=== PATIENT | male | born 1940 | race Caucasian/White ===

== ENCOUNTER 2023-06-28 10:53 | Outpatient (REF) | payer MEDICARE, SELFPAY | END 2023-06-28 10:54 | disposition home or self-care (01) | LOC: HO.BBR 10:53 | PROVIDERS: PCP Family Medicine; Visit Provider Internal Medicine | DX: Z13.89 Encounter for screening for other disorder (principal) ==

== ENCOUNTER 2023-07-05 14:31 | Outpatient (AMB) | payer MEDICARE, SELFPAY ==
--- NOTE | 2023-07-05 15:02 | HO.NEPHOV_ITS ---
HPI HPI Comments History of Present Illness Details Mr. Cordova was seen in the office in follow-up for his hypertension. He regularly follows up with his primary care provider Dr. Zazueta. His blood pressure is well controlled. He is compliant with his medications. He does not have any chest pain, shortness of breath, nausea, vomiting, diarrhea, urinary symptoms or pedal edema. He has quit drinking alcohol. His primary care had found him to have high ferritin levels. He had undergone studies to rule out hemochromatosis. He avoids nonsteroidal anti-inflammatory medications. There were no specific complaints at the time of this office visit. [facility] Medical History (Updated 07/06/23 @ 06:15 by Henri Shah MD) Hypertension Chronic kidney disease Cataract Surgical History (Updated 07/05/23 @ 15:07 by Lula Valerio MA) History of cataract surgery History of knee replacement Family History (Updated 07/05/23 @ 15:08 by Lula Valerio MA) Daughter Diabetes Social History (Updated 07/05/23 @ 15:07 by Lula Valerio MA) Alcohol intake: never Patient Tobacco Use Status: Former Tobacco user Vital Signs 07/05/23 15:08 Height 5 ft 2 in Weight 158 lb 4 oz BMI 28.9 BP 132/64 Blood Pressure Location Lt brachial Position Sitting Pulse 64 Pulse Source Pulse Oximeter Assessment & Plan Assessment & Plan (1) Hypertension: Code(s): I10 - Essential (primary) hypertension Qualifiers: Hypertension type: primary hypertension Qualified Code(s): I10 - Essential (primary) hypertension Plan Mr Cordova has hypertension for a long time. His blood pressure is currently well controlled and is at goal. He is not known to have any significant proteinuria or retinopathy. His volume status quite optimal. He should be on a low-sodium diet. He should avoid nonsteroidal anti-inflammatory medications. He is is on lipid-lowering agents. I did not make any medication changes today. All his questions were answered. Follow-up lab work ordered. Follow-up given. Time spent for retrieving data, patient encounter and documentation 24 minutes. Orders: Orders Electrolytes 07/05/23 I10 - Essential (primary) hypertension Creatinine 07/05/23 I10 - Essential (primary) hypertension Calcium 07/05/23 I10 - Essential (primary) hypertension Blood Urea Nitrogen 07/05/23 I10 - Essential (primary) hypertension Coding Level of Care Code Est Pt Level 3 (89132) Diagnoses Primary hypertension I10 Hypertension type: primary hypertension
[2023-07-05 15:08] VITALS: BP 132/64; PULSE 64; BMI 28.9
== END 2023-07-05 15:55 | disposition home or self-care (01) ==
PROVIDERS: PCP Family Medicine; Visit Provider Internal Medicine Nephrology
DX: I10 Essential (primary) hypertension (principal)
CPT/HCPCS: 99213

== ENCOUNTER → 2023-07-05 14:31 | Outpatient (BNVA) | payer MEDICARE, SELFPAY | PROVIDERS: PCP Family Medicine; Visit Provider Internal Medicine Nephrology | DX: I10 Essential (primary) hypertension (principal) | CPT/HCPCS: 99212 ==

== ENCOUNTER 2023-09-28 10:52 | Outpatient (REF) | payer MEDICARE, SELFPAY | END 2023-09-28 10:53 | disposition home or self-care (01) | LOC: HO.BBR 10:52 | PROVIDERS: PCP Family Medicine; Visit Provider Internal Medicine | DX: Z13.89 Encounter for screening for other disorder (principal) ==

== ENCOUNTER 2024-01-06 13:23 | Outpatient (AMB) | payer MEDICARE, SELFPAY ==
[2024-01-06 13:24] VITALS: BP 118/52; PULSE 68; O2SAT 96; BMI 29.8
--- NOTE | 2024-01-06 13:24 | HO.NEPHOV_ITS ---
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 Cordova was seen in the office in follow-up for his hypertension. He regularly follows up with his primary care provider Dr. Zazueta. His blood pressure is well controlled. He is compliant with his medications. He does not have any chest pain, shortness of breath, nausea, vomiting, diarrhea, urinary symptoms or pedal edema. He has quit drinking alcohol. He had undergone studies to rule out hemochromatosis. He avoids nonsteroidal anti-inflammatory medications. There were no specific complaints at the time of this office visit. [facility] Medical History (Updated 07/06/23 @ 06:15 by Henri Shah MD) Hypertension Chronic kidney disease Cataract Surgical History History of cataract surgery History of knee replacement Family History Daughter Diabetes Social History Alcohol intake: never Patient Tobacco Use Status: Former Tobacco user Physical Exam Vital Signs: Last Vital Signs Pulse 68 01/06/24 13:24 BP 148/52 H 01/06/24 13:24 Pulse Ox 96 01/06/24 13:24 Oxygen Delivery Method Room Air 01/06/24 13:24 BMI result Body Mass Index 29.8 Const General: comfortable and no acute distress Orientation/consciousness: patient oriented x3 HEENT Head: Yes normocephalic Mouth: Normal oral and palatal mucosa present Eyes EOM: EOMs intact bilaterally Neck Neck: Yes supple Resp Auscultation: clear to auscultation bilaterally Cardio Jugular venous distension: no JVD Rate: regular rate GI Palpation (GI): Soft to palpation Auscultation: normal bowel sounds General: Yes no CVA tenderness Back/Spine/Pelvis Back: no CVA tenderness Skin General skin exam: no rashes or lesions noted Neuro General: patient oriented x3 and moves all extremities Extrem General: Yes no pedal edema Results Reviewed Nephrology Results: No Data to Display Assessment & Plan Assessment & Plan (1) Hypertension: Code(s): I10 - Essential (primary) hypertension Category: Medical Qualifiers: Hypertension type: primary hypertension Qualified Code(s): I10 - Essential (primary) hypertension Plan Mr Cordova has hypertension for a long time. His blood pressure is currently well controlled and is at goal. He is not known to have any significant proteinuria or retinopathy. His volume status quite optimal. He should be on a low-sodium diet. He should avoid nonsteroidal anti-inflammatory medications. He is is on lipid-lowering agents. I did not make any medication changes today. All his questions were answered. Follow-up lab work ordered. Follow-up given. Coding Level of Care Code Est Pt Level 4 (67164) Diagnoses Primary hypertension I10 Hypertension type: primary hypertension
== END 2024-01-06 13:46 | disposition home or self-care (01) ==
PROVIDERS: PCP Family Medicine; Visit Provider Internal Medicine Nephrology
DX: I10 Essential (primary) hypertension (principal)
CPT/HCPCS: 99214

== ENCOUNTER → 2024-01-06 13:23 | Outpatient (BNVA) | payer MEDICARE, SELFPAY | PROVIDERS: PCP Family Medicine; Visit Provider Internal Medicine Nephrology | DX: I10 Essential (primary) hypertension (principal); Z79.899 Other long term (current) drug therapy | CPT/HCPCS: 99212 ==

== ENCOUNTER 2024-07-06 13:14 | Outpatient (AMB) | payer MEDICARE, SELFPAY ==
--- NOTE | 2024-07-06 13:31 | HO.NEPHOV ---
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 Cordova was seen in the office in follow-up for his hypertension. He regularly follows up with his primary care provider Dr. Zazueta. His blood pressure is well controlled. He is compliant with his medications. He does not have any chest pain, shortness of breath, nausea, vomiting, diarrhea, urinary symptoms or pedal edema. He has quit drinking alcohol. He had undergone studies to rule out hemochromatosis. He avoids nonsteroidal anti-inflammatory medications. There were no specific complaints at the time of this office visit. [facility] Medical History (Updated 07/06/23 @ 06:15 by Henri Shah MD) Hypertension Chronic kidney disease Cataract Surgical History History of cataract surgery History of knee replacement Family History Daughter Diabetes Social History Alcohol intake: never Patient Tobacco Use Status: Former Tobacco user Review of Systems Const All systems reviewed & are unremarkable except as noted in HPI and below Physical Exam Vital Signs: Last Vital Signs Pulse 68 07/06/24 13:33 BP 110/58 L 07/06/24 13:33 Pulse Ox 96 07/06/24 13:33 Oxygen Delivery Method Room Air 07/06/24 13:33 BMI result Body Mass Index 29.4 Const General: comfortable and no acute distress Orientation/consciousness: patient oriented x3 HEENT Head: Yes normocephalic Mouth: Normal oral and palatal mucosa present Eyes EOM: EOMs intact bilaterally Neck Neck: Yes supple Resp Auscultation: clear to auscultation bilaterally Cardio Jugular venous distension: no JVD Rate: regular rate GI Palpation (GI): Soft to palpation Auscultation: normal bowel sounds General: Yes no CVA tenderness Back/Spine/Pelvis Back: no CVA tenderness Skin General skin exam: no rashes or lesions noted Neuro General: patient oriented x3 and moves all extremities Extrem General: Yes no pedal edema Results Reviewed Nephrology Results: No Data to Display Assessment & Plan Assessment & Plan (1) Hypertension: Code(s): I10 - Essential (primary) hypertension Category: Medical Qualifiers: Hypertension type: primary hypertension Qualified Code(s): I10 - Essential (primary) hypertension Plan Mr Cordova has hypertension for a long time. His blood pressure is currently well controlled and is at goal. He is not known to have any significant proteinuria or retinopathy. His volume status quite optimal. He should be on a low-sodium diet. He should avoid nonsteroidal anti-inflammatory medications. He is is on lipid-lowering agents. I did not make any medication changes today. All his questions were answered. Follow-up lab work ordered. Follow-up given Orders: Orders Blood Urea Nitrogen 8 Months I10 - Essential (primary) hypertension Creatinine 8 Months I10 - Essential (primary) hypertension Electrolytes 8 Months I10 - Essential (primary) hypertension Coding Level of Care Code Est Pt Level 4 (63763) Diagnoses Primary hypertension I10 Hypertension type: primary hypertension
[2024-07-06 13:33] VITALS: BP 110/58; PULSE 68; O2SAT 96; BMI 29.4
== END 2024-07-06 13:47 | disposition home or self-care (01) ==
PROVIDERS: PCP Family Medicine; Visit Provider Internal Medicine Nephrology
DX: I10 Essential (primary) hypertension (principal)
CPT/HCPCS: 99214

== ENCOUNTER → 2024-07-06 13:14 | Outpatient (BNVA) | payer MEDICARE, SELFPAY | PROVIDERS: PCP Family Medicine; Visit Provider Internal Medicine Nephrology | DX: I10 Essential (primary) hypertension (principal) | CPT/HCPCS: 99212 ==

== ENCOUNTER 2025-03-06 09:44 | Outpatient (AMB) | payer MEDICARE, SELFPAY ==
--- NOTE | 2025-03-06 09:54 | HO.NEPHOV ---
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 Cordova was seen in the office in follow-up for his hypertension. His blood pressure is well controlled. He is compliant with his medications. He does not have any chest pain, shortness of breath, nausea, vomiting, diarrhea, urinary symptoms or pedal edema. He has quit drinking alcohol. He had undergone studies to rule out hemochromatosis. He avoids nonsteroidal anti-inflammatory medications. He came off ACEI. There were no specific complaints at the time of this office visit. [facility] Medical History (Updated 07/06/23 @ 06:15 by Henri Shah MD) Hypertension Chronic kidney disease Cataract Surgical History History of cataract surgery History of knee replacement Family History Daughter Diabetes Social History Alcohol intake: never Patient Tobacco Use Status: Former Tobacco user Review of Systems Const All systems reviewed & are unremarkable except as noted in HPI and below Physical Exam Vital Signs: Last Vital Signs Pulse 74 03/06/25 09:55 BP 120/52 L 03/06/25 09:55 Pulse Ox 97 03/06/25 09:55 Oxygen Delivery Method Room Air 03/06/25 09:55 BMI result Body Mass Index 29.4 Const General: comfortable and no acute distress Orientation/consciousness: patient oriented x3 HEENT Head: Yes normocephalic Mouth: Normal oral and palatal mucosa present Eyes EOM: EOMs intact bilaterally Neck Neck: Yes supple Resp Auscultation: clear to auscultation bilaterally Cardio Jugular venous distension: no JVD Rate: regular rate GI Palpation (GI): Soft to palpation Auscultation: normal bowel sounds General: Yes no CVA tenderness Back/Spine/Pelvis Back: no CVA tenderness Skin General skin exam: no rashes or lesions noted Neuro General: patient oriented x3 and moves all extremities Extrem General: Yes no pedal edema Assessment & Plan Assessment & Plan (1) Hypertension: Code(s): I10 - Essential (primary) hypertension Category: Medical Qualifiers: Hypertension type: primary hypertension Qualified Code(s): I10 - Essential (primary) hypertension Plan Mr Cordova has hypertension for a long time. His blood pressure is currently well controlled and is at goal. He is not known to have any significant proteinuria or retinopathy. His volume status quite optimal. He should be on a low-sodium diet. He should avoid nonsteroidal anti-inflammatory medications. He is is on lipid-lowering agents. I did not make any medication changes today. All his questions were answered. Follow-up lab work ordered. Follow-up given Orders: Orders Creatinine 6 Months I10 - Essential (primary) hypertension Blood Urea Nitrogen 6 Months I10 - Essential (primary) hypertension Electrolytes 6 Months I10 - Essential (primary) hypertension Protein Creatinine Ratio, Ur 6 Months I10 - Essential (primary) hypertension Coding Level of Care Code Est Pt Level 4 (21629) Diagnoses Primary hypertension I10 Hypertension type: primary hypertension
[2025-03-06 09:55] VITALS: BP 120/52; PULSE 74; O2SAT 97; BMI 29.4
--- OUTSIDE RECORDS SUMMARY | 2025-03-06 10:16 | XMS_ITS | Clinical Summary ---
Author Organization [facility] Address [address] [place] [address] Care Team Providers Care Pmo Lead Name Role Phone Blaine Zazueta MD Primary Care Provider [phone] Allergies No known active allergies Medications Medication Sig Dispensed Refills Start Date End Date Status dorzolamide-timolol (COSOPT) 22.3-6.8 MG/ML ophthalmic solution 1 drop 2 (two) times a day. 0 Active fluticasone (FLONASE) 50 MCG/ACT nasal spray spray/apply 1 spray in each nostril daily. 0 Active fluticasone-salmeterol 250-50 MCG/ACT AEPB Inhale into the lungs. 0 Active latanoprost (XALATAN) 0.005 % ophthalmic solution 1 drop every night at bedtime. 0 Active lisinopril (PRINIVIL,ZESTRIL) tablet 20 mg Take 1 tablet (20 mg total) by mouth daily. 0 Active metoprolol succinate (TOPROL-XL) 24 hr tablet 50 mg Take by mouth daily. 0 Active oxyCODONE (ROXICODONE) 5 MG immediate release tablet Take 1 tablet (5 mg total) by mouth every 4 (four) hours as needed for pain. 0 Active verapamil (CALAN-SR) 240 MG CR tablet Take 1 tablet (240 mg total) by mouth every night at bedtime. 0 Active Multiple Vitamins-Minerals (PRESERVISION AREDS PO) Take by mouth. 0 Active Active Problems No known active problems Social History Tobacco Use Types Packs/Day Years Used Date Smoking Tobacco: Former Cigarettes Smokeless Tobacco: Never Tobacco Cessation:Counseling Given: Not Answered Alcohol Use Standard Drinks/Week Comments Not Currently 0 (1 standard drink = 0.6 oz pur e alcohol) Sex and Gender Information Value Date Recorded Sex Assigned at Male 05/26/2023 8:35 AM EDT Gender Identity Not on file Sexual Orientation Not on file Job Start Date Occupation Industry Not on file Not on file Not on file Last Filed Vital Signs Vital Sign Reading Time Taken Comments Blood Pressure 155/46 06/06/2024 1:56 PM EDT Pulse 70 06/06/2024 1:56 PM EDT Temperature 36.4 C (97.6 F) 06/06/2024 1:56 PM EDT Respiratory Rate - - Oxygen Saturation 100% 06/06/2024 1:56 PM EDT Inhaled Oxygen Concentration - - Weight 73.4 kg (161 lb 12.8 oz) 06/06/2024 1:56 PM EDT Height - - Body Mass Index - - Plan of Treatment Health Maintenance Due Date Last Done Comments Depression Screening 1952 Preventative Health Evaluation 1958 DTap / Tdap / Td (1 - Tdap) 1959 Shingrix-Zoster Vaccine (1 of 2) 1990 Fall Risk Assessment 2005 Pneumococcal Vaccine (2 of 2 - PCV) 01/02/2015 01/02/2014 RSV Adult > 60+ Yrs or (1 - 1-dose 75+ series) 2015 COVID-19 Vaccine ( season) 2024 09/07/2021, 01/10/2021, 12/20/2020 Influenza Vaccine (#1) 2025 2, 06/25/2021, 04/25/2017, Additional history exists Hepatitis B Vaccines Aged Out No long er eligible based on patient's age to complete this topic RSV Ped < 20 months Aged Out No longe r eligible based on patient's age to complete this topic Care Teams Pmo Lead Relationship Specialty Start Date End Date Blaine Zazueta MD [address] [place] [address] PCP - General Family Medicine 05/26/23
--- OUTSIDE RECORDS SUMMARY | 2025-03-06 10:16 | XMS_ITS | Clinical Summary ---
Author Organization [facility] Address [address] [place] [address] Phone Care Team Providers Care Patrol Inspector Name Role Phone Blaine Zazueta Primary Care Provider [phone] Allergies Active Allergy Reactions Criticality Noted Date Comments Brimonidine 11/04/2011 Medications acetaminophen (TYLENOL) 500 mg tablet 500 mg as needed. 8 Active bromfenac (XIBROM) 0.09 % ophthalmic solution apply to the eye. Active dorzolamide-opal oloL (COSOPT) 22.3-6.8 mg/mL ophthalmic solution Sig: Use twice daily in each eye Active fluticasone propionate (FLONASE) 50 mcg/actuation nasal spray SHAKE LIQUID AND USE 1 TO 2 SPRAYS IN EACH NOSTRIL EVERY DAY NEEDED 3 Active latanoprost (XALATAN) 0.005 % ophthalmic solution 1 Drop at bedtime. Active lisinopriL (PRINIVIL,ZESTR IL) 20 mg tablet 20 mg daily. 2 Active metoprolol succinate (TOPROL-XL) 50 mg 24 hr tablet daily. 9 Active oxyCODONE (ROXICODONE) 5 mg immediate release tablet 5 mg. TAKE 1 1/2 TABLET DAILY 4 Active verapamil ER (VERELAN) 240 mg 24 hr capsule 240 mg 2 times daily. 9 Active atorvastatin (LIPITOR) 10 mg tablet Take 1 tablet (10 mg total) by mouth 1 (one) time each day. 4 Active vit A/vit C/vit E/zinc/copper (ICAPS AREDS ORAL) Take 2 capsules by mouth 1 (one) time each day. Active fluticasone propionate (FLOVENT DISKUS) 50 mcg/actuation diskus inhaler Inhale 1 puff by mouth 2 (two) times a day. Rinse mouth with water after use to reduce aftertaste and incidence of candidiasis. Do not swallow. Active Active Problems Problem Noted Date Diagnosed Date Hyperlipidemia 07/10/2019 Hypertension 07/10/2019 Known medical problems 07/10/2019 Overview (10/31/2024): Opioid dependence in controlled environment For chronic back pain Alcoholic liver disease ([facility] V24) 04/24/2018 Dupuytren's contracture 03/21/2017 Pulmonary emphysema ([facility] V24, [facility] V28) 0 11/30/2016 Pulmonary nodules 11/30/2016 Benign essential hypertension 07/08/2014 Chronic lower back pain 07/08/2014 Disc degeneration, lumbar 07/08/2014 Osteoarthritis of knee 05/16/2013 Aortic valve sclerosis 01/09/2013 Overview (10/31/2024): Comments: R/O stenosis Immunizations Name Administration Dates Next Due [employer] SARS-CoV-2 COVID-19, mRNA, LNP-S, preservative free 09/07/2021,01/10/2021,12/20/2020 Zoster Live 03/16/2012 Surgical History Surgery Date Site/Laterality Comments EYE SURGERY [id number] Right PROCEDURE: HISTORICAL EYE SURGERY; COMMENT: pars plana lensectomy, and endolaser vitrectomy COLONOSCOPY 2005 PROCEDURE: HISTORICAL COLONOSCOPY HAND SURGERY PROCEDURE: HISTORICAL HAND SURGERY; COMMENT: open palmar fasciotomy for Dupuytren's Contracture Medical History Medical History Date Comments Alcoholic liver disease ([facility] V24) 04/24/2018 DX:Alcoholic liver disease (HCC) Aortic valve sclerosis 01/09/2013 DX:Aortic valve sclerosis; COMMENT: Comments: R/O stenosis Benign essential hypertension 07/08/2014 DX :Benign essential hypertension Chronic lower back pain 07/08/2014 DX:Chron ic lower back pain Disc degeneration, lumbar 07/08/2014 DX:Dis c degeneration, lumbar Dupuytren's contracture 03/21/2017 DX:Robert tren's contracture Hyperlipidemia 07/10/2019 DX:Hyperlipidemi a Hypertension 07/10/2019 DX:Hypertension Opioid dependence in control led environment ([facility]) 07/10/2019 DX:Opioid dependence in cont rolled environment ([facility]); COMMENT: For chronic back pain Osteoarthritis of knee 05/16/2013 DX:Osteoa rthritis of knee Pulmonary emphysema ([facility] V24, [facility] [place] 11/30/2016 DX:Pulmonary emphysema ([facility]) Pulmonary nodules 11/30/2016 DX:Pulmonary n odules Social History Tobacco Use Types Packs/Day Years Used Date Smoking Tobacco: Former Smokeless Tobacco: Never Alcohol Use Standard Drinks/Week Comments Not Currently 0 (1 standard drink = 0.6 oz pur e alcohol) Sex and Gender Information Value Date Recorded Sex Assigned at Not on file Legal Sex Male 2:21 PM EST Gender Identity Not on file Sexual Orientation Not on file Obstetrics History Last Filed Vital Signs Vital Sign Reading Time Taken Comments Blood Pressure 128/62 11/08/2024 2:06 PM EDT Pulse 74 11/08/2024 2:06 PM EDT Temperature - - Respiratory Rate - - Oxygen Saturation - - Inhaled Oxygen Concentration - - Weight 71.2 kg (157 lb) 11/08/2024 2:06 PM EDT Height 154.9 cm (5' 1 ) 11/08/2024 2:06 PM EDT Body Mass Index 29.66 11/08/2024 2:06 PM EDT Plan of Treatment Upcoming Encounters Date Type Department Care Team (Late st Contact Info) Description 03/20/2025 2:00 PM EDT Office Visit Pulmonolgy - [address] [phone] Nohemy Ramsay MD [address] [place] [id number] 04/16/2025 11:00 AM EDT Office Visit Gastroenterology - [address] [phone] Hollis Nixon MD [address] [place] [phone] 07/03/2025 1:00 PM EST Office Visit [facility] Hematology Oncology [address] [place] [phone] Sue Dunlap MD [address] [place] [address] Health Maintenance Due Date Last Done Comments DTaP,Tdap,and Td Vaccines (1 - Tdap) 1959 Hepatitis A Vaccines (1 of 2 - Risk 2-dose series) 1959 Hepatitis B Vaccines (1 of 3 - Risk 3-dose series) 2000 Zoster Vaccines (2 of 3) 05/11/2012 03/16/2012 Pneumococcal Vaccine: 50+ Years (2 of 2 - PCV) 01/02/2015 01/02/2014 RSV Immunization Adult Patients (1 - 1-dose 75+ series) 2015 Cholesterol Screening (Lipid Panel) 07/28/2022 Depression Screening 07/28/2022 Falls Risk Assessment 07/28/2022 Medicare Annual Wellness Visit 07/28/2022 Social Influencers of Health Screening 07/28/2022 Hypertension/CHF/CAD Annual BMP Blood Test 08/05/2022 COVID-19 Vaccine ( season) 2024 06/18/2024, 06/15/2022, 09/07/2021, Additional history exists Influenza Vaccine (#1) 2025 , 06/30/2023, 06/15/2022, Additional history exists HIB Vaccines Aged Out No longer eligi ble based on patient's age to complete this topic HPV Vaccines Aged Out No longer eligi ble based on patient's age to complete this topic IPV Vaccines Aged Out No longer eligi ble based on patient's age to complete this topic MMR Vaccines Aged Out No longer eligi ble based on patient's age to complete this topic Meningococcal ACWY Vaccine Aged Out N o longer eligible based on patient's age to complete this topic Meningococcal B Vaccine Aged Out No l onger eligible based on patient's age to complete this topic RSV Immunization Patients Under 20 months Aged Out No longer eligible based on patient's age to complete this topic Varicella Vaccines Aged Out No longer eligible based on patient's age to complete this topic Procedures Procedure Name Priority Date/Time Associated Diagnosis Comments US ABDOMEN LIMITED Routine 12/28/2024 1:33 PM EDT from Last 3 Months Results * US Abdomen Limited (12/28/2024 1:33 PM EDT) Anatomical Region Laterality Modality Body Ultrasound us Historical Provider MD HINOJOSA US PROCEDURES Final R esult from Last 3 Months Insurance [employer] Care Teams Patrol Inspector Relationship Specialty Start Date End Date Blaine Zazueta DO [address] [place], [place] PCP - General 05/26/23
--- OUTSIDE RECORDS SUMMARY | 2025-03-06 10:16 | XMS_ITS | Clinical Summary ---
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 Name Role Phone Zazueta Blaine Amy PERSON Primary Care Provider Allergies No known active allergies Medications Acetaminophen (Tylenol) 325 MG capsule Take 1 capsule by mouth 1 (one) time each day Active bromfenac (XIBROM) 0.09 % ophthalmic solution Active dorzolamide-opal olol (COSOPT) 22.3-6.8 MG/ML ophthalmic solution Administer 1 drop into both eyes 2 (two) times a day Active oxyCODONE (ROXICODONE) 5 MG immediate release tablet Take 1 tablet by mouth every 28 (twenty-eight) days Active verapamil SR (CALAN-SR) 240 MG CR tablet Take 1 tablet by mouth 2 (two) times a day Active fluticasone (FLONASE) 50 MCG/ACT nasal spray 1 Active latanoprost (XALATAN) 0.005 % ophthalmic solution APPLY ONE DROP INTO BOTH EYES EVERY NIGHT AT BEDTIME 1 Active atorvastatin (LIPITOR) 10 MG tablet Take 10 mg by mouth 1 (one) time each day 2 Active Fluticasone-Nestor meterol 250-50 MCG/ACT aerosol powder 2 Active lisinopril 20 MG tablet Take 1 tablet (20 mg total) by mouth 1 (one) time each day 90 tablet 3 3 Active metoprolol succinate XL (TOPROL XL) 50 MG 24 hr tablet Take 1 tablet (50 mg total) by mouth 1 (one) time each day Do not crush or chew. 90 tablet 3 3 Active Active Problems Problem Noted Date Diagnosed Date Hypertension 03/06/2021 Essential hypertension 03/04/2021 Hypo-osmolality and or hyponatremia 03/04/2021 Immunizations Immunization Administration Dates Next Due Pneumococcal Polysaccharide 01/02/2014 Family History Medical History Relation Comments Diabetes Child Cancer Father Lung Cancer Hypertension Father Hypertension Mother Stroke Mother Relation Status Comments Child Father Mother Social History Tobacco Use Types Packs/Day Years Used Date Smoking Tobacco: Never Smokeless Tobacco: Never Tobacco Cessation:Counseling Given: Not Answered Alcohol Use Standard Drinks/Week Comments Yes 0 (1 standard drink = 0.6 oz pure alcohol) Alcoholic Drinks/day: 3 or more drinks per day Sex and Gender Information Value Date Recorded Sex Assigned at Not on file Legal Sex Male 4:59 PM EST Gender Identity Not on file Sexual Orientation Not on file Last Filed Vital Signs Vital Sign Reading Time Taken Comments Blood Pressure 130/66 06/30/2022 1:07 PM EDT Pulse 67 06/30/2022 1:07 PM EDT Temperature - - Respiratory Rate - - Oxygen Saturation 98% 03/06/2021 2:11 PM EDT Inhaled Oxygen Concentration - - Weight 69.4 kg (153 lb) 06/30/2022 1:07 PM EDT Height 160 cm (5' 3 ) 09/05/2020 12:00 PM EST Body Mass Index 27.1 09/05/2020 12:00 PM EST Plan of Treatment Health Maintenance Due Date Last Done Comments Pneumococcal Vaccine: 50+ Ye ars (2 of 2 - PCV) 01/02/2015 01/02/2014 Influenza Vaccine (#1) 2025 Pneumococcal Vaccine: Peds ( 0 to 5 Years) and At-Risk Patients (6 to 49 Years) Discontinued 01/02/2014 Hepatitis B Vaccine Aged Out No longe r eligible based on patient's age to complete this topic Insurance [facility] Care Teams Printing Roller Handler Relationship Specialty Start Date End Date Blaine Zazueta DO [address] [place] [id number] PCP - General 09/08/20
== END 2025-03-06 10:19 | disposition home or self-care (01) ==
LOC: HO.HKA 09:45
PROVIDERS: PCP Family Medicine; Visit Provider Internal Medicine Nephrology
DX: I10 Essential (primary) hypertension (principal)
CPT/HCPCS: 99214

== ENCOUNTER → 2025-03-06 09:44 | Outpatient (BNVA) | payer MEDICARE, SELFPAY | PROVIDERS: PCP Family Medicine; Visit Provider Internal Medicine Nephrology | DX: I10 Essential (primary) hypertension (principal) | CPT/HCPCS: 99212 ==